=== PATIENT | female | born 1980 | race Caucasian/White ===

== ENCOUNTER 2019-05-23 21:25 | Inpatient (IN) | payer MEDICAID ==
[2019-05-23] MEDS ORDERED: CARBOPROST 250 MCG INJ IM (22:00)
[2019-05-23] MEDS ORDERED: LIDOCAINE 1% (MPF) 30 ML INJ INJ (22:00)
[2019-05-23] MEDS ORDERED: MISOPROSTOL 200 MCG TAB PR (22:00)
[2019-05-23] MEDS ORDERED: OXYTOCIN 30 UNITS/LR 500 ML IV (22:00)
[2019-05-23] MEDS: LACTATED RINGER'S 1,000 ML IV (22:18)
[2019-05-23 22:43] LABS: ADD MAN DIFF? NO
[2019-05-23 22:46] LABS: WHITE BLOOD COUNT 8.5 10^3/ul (4.8-10.8)
[2019-05-23 22:46] LABS: BASOPHILS % 0.4 % (0.0-2.0); EOSINOPHILS # 0.3 10^3/ul (0.0-0.5); EOSINOPHILS % 3.9 % (0.0-7.0); HEMOGLOBIN 11.8 g/dl (12.0-16.0); LYMPHOCYTES # 2.1 10^3/ul (0.8-2.9); LYMPHOCYTES % 24.4 % (15.0-51.0); MEAN CORPUSCULAR HEMOGLOBIN 28.4 pg (29.0-33.0); MEAN CORPUSCULAR HGB CONC 32.8 g/dl (32.0-37.0); MEAN CORPUSCULAR VOLUME 86.7 fl (82.0-101.0); MEAN PLATELET VOLUME 11.6 fl (7.4-10.4); MONOCYTE # 0.6 10^3/ul (0.3-0.9); MONOCYTES % 6.5 % (0.0-11.0); NEUTROPHIL # 5.4 10^3/ul (1.6-7.5); NEUTROPHILS % 63.9 % (39.0-77.0); PLATELET COUNT 209 10^3/UL (140-415); RED BLOOD COUNT 4.15 10^6/ul (4.20-5.40); RED CELL DISTRIBUTION WIDTH 14.6 % (11.5-14.5)
[2019-05-23 23:19] LABS: INR 0.92; PROTIME 12.5 Sec (11.9-14.9)
[2019-05-23 23:20] LABS: PARTIAL THROMBOPLASTIN TIME 33.9 Sec (23.0-35.0)
[2019-05-24] MEDS: MISOPROSTOL 50 MCG CAPSULE PO ×6 (00:21→20:17)
[2019-05-24] MEDS: LACTATED RINGER'S 1,000 ML IV ×3 (04:07→20:17)
[2019-05-24] MEDS: LEVOTHYROXINE 88 MCG TAB PO (05:59)
[2019-05-24 07:17] LABS: HEPATITIS B SURFACE ANTIGEN NEGATIVE (NEGATIVE)
[2019-05-24] MEDS ORDERED: FENTAnyl 2MCG/ML-ROPIV 0.2% 0 ML (08:37)
[2019-05-24 15:46] LABS: RAPID PLASMA REAGIN NONREACTIVE (NR)
[2019-05-24] MEDS ORDERED: OXYTOCIN 30 UNITS/LR 500 ML IV (23:00)
[2019-05-25] MEDS: OXYTOCIN 30 UNITS/LR 500 ML IV ×2 (00:59→16:36)
[2019-05-25] MEDS: LACTATED RINGER'S 1,000 ML IV ×4 (02:34→11:05)
[2019-05-25] MEDS: LEVOTHYROXINE 88 MCG TAB PO (06:25)
[2019-05-25] MEDS ORDERED: FENTAnyl 2MCG/ML-ROPIV 0.2% 100 ML (08:10)
[2019-05-25] MEDS ORDERED: FENTAnyl 2MCG/ML-ROPIV 0.2% 100 ML BAG EPI (08:30)
[2019-05-25] MEDS ORDERED: ONDANSETRON 4 MG INJ IV (08:30)
[2019-05-25] MEDS ORDERED: DIPHENHYDRAMINE 50 MG INJ IV (08:30)
[2019-05-25] MEDS ORDERED: NALOXONE (0.4 MG/ML) INJ IV (08:30)
[2019-05-25] MEDS: DEXTROSE 5%-LR 1,000 ML IV (11:45)
[2019-05-25 13:27] LABS: ADD MAN DIFF? NO
[2019-05-25 13:28] LABS: WHITE BLOOD COUNT 8.9 10^3/ul (4.8-10.8)
[2019-05-25 13:28] LABS: BASOPHILS % 0.4 % (0.0-2.0); EOSINOPHILS # 0.2 10^3/ul (0.0-0.5); HEMATOCRIT 35.1 % (37.0-47.0); HEMOGLOBIN 11.2 g/dl (12.0-16.0); LYMPHOCYTES # 1.8 10^3/ul (0.8-2.9); MEAN CORPUSCULAR HEMOGLOBIN 27.9 pg (29.0-33.0); MEAN CORPUSCULAR HGB CONC 31.9 g/dl (32.0-37.0); MEAN CORPUSCULAR VOLUME 87.3 fl (82.0-101.0); MEAN PLATELET VOLUME 11.6 fl (7.4-10.4); MONOCYTE # 0.5 10^3/ul (0.3-0.9); MONOCYTES % 5.5 % (0.0-11.0); NEUTROPHIL # 6.4 10^3/ul (1.6-7.5); NEUTROPHILS % 71.3 % (39.0-77.0); PLATELET COUNT 185 10^3/UL (140-415); RED BLOOD COUNT 4.02 10^6/ul (4.20-5.40)
[2019-05-25 13:48] LABS: INR 0.97
[2019-05-25 13:49] LABS: PARTIAL THROMBOPLASTIN TIME 36.1 Sec (23.0-35.0)
[2019-05-25] MEDS: METHYLERGONOVINE 0.2 MG INJ IM (16:27)
[2019-05-25] MEDS: IBUPROFEN 600 MG TAB PO ×2 (17:52→23:29)
[2019-05-25] MEDS: LACTATED RINGER'S 1,000 ML IV* (18:55)
[2019-05-25] MEDS ORDERED: ACETAMINOPHEN 325 MG TAB PO (19:00)
[2019-05-25] MEDS ORDERED: OXYTOCIN 30 UNITS/LR 500 ML IV (19:00)
[2019-05-25] MEDS ORDERED: CARBOPROST 250 MCG INJ IM (19:00)
[2019-05-25] MEDS ORDERED: METHYLERGONOVINE 0.2 MG INJ IM (19:00)
[2019-05-25] MEDS ORDERED: MISOPROSTOL 200 MCG TAB PR (19:00)
[2019-05-25] MEDS ORDERED: DIBUCAINE 1% 30 GM OINT TOP (19:00)
[2019-05-25] MEDS: BENZOCAINE 20% 56 ML SPRAY TOP (20:17)
[2019-05-25] MEDS: WITCH HAZEL/GLYCERIN PAD PR (20:17)
[2019-05-25] MEDS: HYDROCODONE/APAP (5/325) TAB PO (20:17)
[2019-05-25] MEDS: SENNA/DOCUSATE NA (8.6MG/50MG) TAB PO (20:17)
[2019-05-26] MEDS: LACTATED RINGER'S 1,000 ML IV* ×3 (02:55→11:51)
[2019-05-26] MEDS: LEVOTHYROXINE 88 MCG TAB PO (05:51)
[2019-05-26] MEDS: IBUPROFEN 600 MG TAB PO ×4 (06:00→23:43)
[2019-05-26 08:16] LABS: ADD MAN DIFF? NO
[2019-05-26 08:20] LABS: WHITE BLOOD COUNT 9.7 10^3/ul (4.8-10.8)
[2019-05-26 08:20] LABS: BASOPHIL # 0.1 10^3/ul (0.0-0.1); BASOPHILS % 0.5 % (0.0-2.0); EOSINOPHILS # 0.2 10^3/ul (0.0-0.5); EOSINOPHILS % 2.5 % (0.0-7.0); HEMATOCRIT 32.8 % (37.0-47.0); HEMOGLOBIN 10.6 g/dl (12.0-16.0); LYMPHOCYTES # 2.5 10^3/ul (0.8-2.9); LYMPHOCYTES % 26.1 % (15.0-51.0); MEAN CORPUSCULAR HEMOGLOBIN 28.5 pg (29.0-33.0); MEAN CORPUSCULAR HGB CONC 32.3 g/dl (32.0-37.0); MEAN CORPUSCULAR VOLUME 88.2 fl (82.0-101.0); MEAN PLATELET VOLUME 11.4 fl (7.4-10.4); MONOCYTE # 0.6 10^3/ul (0.3-0.9); MONOCYTES % 5.9 % (0.0-11.0); NEUTROPHIL # 6.2 10^3/ul (1.6-7.5); NEUTROPHILS % 64.3 % (39.0-77.0); PLATELET COUNT 175 10^3/UL (140-415); RED BLOOD COUNT 3.72 10^6/ul (4.20-5.40); RED CELL DISTRIBUTION WIDTH 14.9 % (11.5-14.5)
[2019-05-26] MEDS: SENNA/DOCUSATE NA (8.6MG/50MG) TAB PO ×2 (08:30→23:43)
[2019-05-26] MEDS: HYDROCODONE/APAP (5/325) TAB PO ×2 (08:31→14:43)
[2019-05-26] MEDS: ALBUTEROL HFA 8 GM INHALER INH (11:52)
[2019-05-26] MEDS ORDERED: METHYLERGONOVINE 0.2 MG INJ (12:00)
[2019-05-26] MEDS: LANOLIN HPA 1 PKT TOP (16:26)
[2019-05-26] MEDS ORDERED: ALBUTEROL HFA 8 GM INHALER INH (20:00)
[2019-05-27] MEDS: LACTATED RINGER'S 1,000 ML IV* (02:55)
[2019-05-27] MEDS: IBUPROFEN 600 MG TAB PO ×2 (05:49→12:03)
[2019-05-27] MEDS: LEVOTHYROXINE 88 MCG TAB PO (05:49)
[2019-05-27] MEDS: SENNA/DOCUSATE NA (8.6MG/50MG) TAB PO (08:29)
[2019-05-27] MEDS: DIPHTH/TET/ACEL PERTUSS (ADULT) 0.5 ML VIAL IM* (08:30)
== END 2019-05-27 14:31 | disposition home or self-care (01) | DRG 807 ==
LOC: PP1 05-25 18:44 → L-D 21:25
PROVIDERS: Obstetrics & Gynecology
PROC: 10E0XZZ Delivery of Products of Conception, External Approach (ICD-10-PCS; principal; 2019-05-25)
DX: O36.5930 Maternal care for other known or suspected poor fetal growth, third trimester, not applicable or unspecified (principal); O69.81X0 Labor and delivery complicated by cord around neck, without compression, not applicable or unspecified; Z3A.37 37 weeks gestation of pregnancy; Z37.0 Single live birth
CPT/HCPCS: 62322; 76815; 85025; 85384; 85610; 85730; 86592; 86850; 86900; 86901; 87340; 88307; 90715